=== PATIENT | male | born 1950 | race Caucasian/White ===

== ENCOUNTER 2020-08-05 18:03 | Observation (INO) ==
--- NOTE | 2020-08-05 18:26 | ERNOTE ---
<Maurilio Douglas - Last Filed: 08/05/20 19:36> Chest Pain/Cardiac HPI Date of Service: 08/05/20 Chief Complaint: Chest Pain Time Seen by Provider: 08/05/20 18:14 Source: patient, police Exam Limitations: no limitations Immunizations: IMMUNIZATION HX Immunizations Up to Date Yes History of Influenza Vaccine No Hx Pneumococcal Vaccination No Allergies/Adverse Reactions: Allergies No Known Allergies Allergy (Unverified 08/05/20 18:14) Home Medications: HOME MEDICATIONS Aspirin [Kd Chewable] 81 mg PO DAILY 08/05/20 [Last Taken Unknown] Atorvastatin Calcium 40 mg PO HS 08/05/20 [Last Taken Unknown] Cholecalciferol (Vitamin D3) [Vitamin D3] 400 unit PO BID 08/05/20 [Last Taken Unknown] Cyanocobalamin (Vitamin B-12) [Vitamin B-12] 200 mcg PO BID 08/05/20 [Last Taken Unknown] Escitalopram Oxalate 10 mg PO DAILY 08/05/20 [Last Taken Unknown] Hydrochlorothiazide [Hydrodiuril] 25 mg PO DAILY 08/05/20 [Last Taken Unknown] Mag Hydrox/Aluminum Hyd/Simeth [Mylanta Maximum Strength Liq] 15 ml PO DAILY 08/05/20 [Last Taken Unknown] Nitroglycerin [Nitro-Dur] 0.4 mg TD PRN 08/05/20 [Last Taken Unknown] Potassium Chloride 10 meq PO DAILY 08/05/20 [Last Taken Unknown] SUMAtriptan SUCCINATE [Sumatriptan Succinate] 50 mg PO DAILY 08/05/20 [Last Taken Unknown] Narrative: patient presents to ed with complaint of chest pain earlier today around 2pm took a nitro with relief has also had an adult asa,past hx of mi Timing: resolved prior to arrival, gone now Severity/Quality: pressure, sharp, stabbing Chest Pain Radiation: no radiation Activities at Onset: rest Modifying Factors - Improves: Present: nitroglycerin Modifying Factors - Worsens: Present: nothing Nitro Today/Relief: 0.4 mg x 1 Aspirin Treatment Today: 325 mg x 1 Associated Symptoms: Present: shortness of breath Prior Chest Pain/Cardiac Workup: Reports: prior chest pain, heart attack Review of Systems - Review of Systems Constitutional: Present: See HPI EYE: Present: no symptoms reported ENT: Present: no symptoms reported Respiratory: Present: no symptoms reported Cardiology: Present: See HPI, chest pain, palpitations Gastrointestinal/Abdominal: Present: no symptoms reported Genitourinary: Present: no symptoms reported Musculoskeletal: Present: no symptoms reported Skin: Present: no symptoms reported Neurological: Present: no symptoms reported Endocrine: Present: no symptoms reported Hematologic/Lymphatic: Present: no symptoms reported Psych: Present: no symptoms reported All Other Systems: All systems neg except as marked Medical History (Last Updated 08/05/20 @ 18:14 by Beth Morfin RN) Angina at rest Heart murmur Past heart attack Surgical History: Surgical History (Last Updated 08/05/20 @ 18:14 by Beth Morfin RN) No pertinent past surgical history Family History: Family History (Last Updated 08/05/20 @ 18:15 by Beth Morfin RN) Father Heart disease Diabetes Mother Heart disease Diabetes Social History: (Last Updated 08/05/20 @ 18:16 by Beth Morfin RN) Tobacco: Smoking Status: Current every day smoker Smoking cigarettes per day: 20 Alcohol: alcohol intake frequency: a few times a week Substance Use: substance use type: does not use Physical Exam - Physical Exam General Appearance: Present: no apparent distress, anxious Head Exam: Present: normal inspection, no evidence of injury Eye Exam: Normal inspection: bilateral, PERRL: bilateral, EOMI: bilateral Ears, Nose, Throat: Present: normal ENT inspection, normal pharynx Neck: Present: normal inspection, nontender Respiratory: Present: no respiratory distress, normal breath sounds, no accessory muscle use, chest nontender, lungs clear Cardiovascular/Chest: Present: irregularly irregular, systolic murmur Gastrointestinal/Abdominal: Present: normal bowel sounds, nontender, nondistended, soft, no organomegaly Back Exam: Present: normal inspection, normal range of motion, no CVA tenderness, no vertebral tenderness Extremity Exam: Present: normal inspection, non-tender, normal range of motion, no edema Neurological Exam: Present: alert, oriented, normal mood/affect, no mo tor/sensory deficits Skin Exam: Present: normal color, warm/dry Lymphatic Exam: Present: no adenopathy Progress - Date and Time Seen: Date and Time: 08/05/20 19:11 patient painfree at present discussed current labs, to repeat troponin at 9 pm - Results and Orders Patient's Lab Results:: I have reviewed the patient's lab results. - Vital Signs Patient's Vital Signs:: I have reviewed the patient's vital signs. Vital Signs: Vital Signs 08/05/20 18:09 Temperature 36.8 C Pulse Rate 82 Respiratory Rate 18 Blood Pressure 181/72 H O2 Sat by Pulse Oximetry 95 - EKG EKG #2 EKG: other - bigeminy EKG read: Interp. by me - Progress/Reassessment Chief Complaint: Chest Pain - Transfer of Care Physician Sign Out: Maurilio Douglas Receiving Physician: Juancarlos Martin Expected Disposition: Discharge Plan - Plan Plan: to be dismissed Departure Clinical Impression: Chest pain Qualifiers: Chest pain type: unspecified Qualified Code(s): R07.9 - Chest pain, unspecified - Departure Disposition: Short Term Hospital Inpatient Condition: Fair <Juancarlos Martin - Last Filed: 08/05/20 21:47> Chest Pain/Cardiac HPI Immunizations: IMMUNIZATION HX Immunizations Up to Date Yes History of Influenza Vaccine No Hx Pneumococcal Vaccination No Medical History (Last Updated 08/05/20 @ 18:14 by Beth Morfin RN) Angina at rest Heart murmur Past heart attack Surgical History: Surgical History (Last Updated 08/05/20 @ 18:14 by Beth Morfin RN) No pertinent past surgical history Family History: Family History (Last Updated 08/05/20 @ 18:15 by Beth Morfin, RN) Father Heart disease Diabetes Mother Heart disease Diabetes Social History: (Last Updated 08/05/20 @ 18:16 by Beth Morfin RN) Tobacco: Smoking Status: Current every day smoker Smoking cigarettes per day: 20 Alcohol: alcohol intake frequency: a few times a week Substance Use: substance use type: does not use Progress - Vital Signs Vital Signs: Vital Signs 08/05/20 18:09 08/05/20 18:33 08/05/20 18:35 Temperature 36.8 C Pulse Rate 82 76 83 Respiratory Rate 18 15 Blood Pressure 181/72 H 157/62 H O2 Sat by Pulse Oximetry 95 99 08/05/20 18:52 08/05/20 19:12 08/05/20 19:37 Temperature Pulse Rate 73 69 66 Respiratory Rate 18 16 12 Blood Pressure 145/61 155/82 H 143/72 O2 Sat by Pulse Oximetry 97 98 98 08/05/20 20:07 08/05/20 20:22 Temperature Pulse Rate 66 64 Respiratory Rate 15 15 Blood Pressure 142/72 130/67 O2 Sat by Pulse Oximetry 96 97 Plan - Plan Plan: Patient handed off to me by Dr. Douglas he has been without any complaints during the time that I have seen him I did repeat his troponin which returned was negative in addition his Covid was negative his EKG has normalized to a normal sinus rhythm. Case discussed with Dr. Hudson who accepted the patient under observation to monitor for cardiac dysrhythmias.
[2020-08-05 18:40] LABS: Hematocrit 50.6 % (42.0-52.0); Hemoglobin 16.7 gm/dL (13.5-18.0); Mean Cell Volume 95.7 fl (78-100); Mean Corpuscular Hemoglobin 31.6 pg (27-31); Mean Platelet Volume 8.8 fl (8-11.3); Neutrophil # 5.3 K/mm3 (1.3-6.0); Neutrophil % 53.3 % (42-75.0); Platelet Count 206 K/mm3 (150-450); Red Blood Count 5.29 M/mm3 (4.7-6.0); Red Cell Distribution Width 12.7 % (11.5-14.0)
[2020-08-05 18:47] LABS: Prothrombin Time (Patient) 10.4 Seconds (9.1-10.7)
[2020-08-05 18:52] LABS: INR 1.05 INR (0.92-1.08)
[2020-08-05 18:57] LABS: Troponin I Less than 0.017 ng/mL (0.00-0.10)
[2020-08-05 18:59] LABS: ALT 22 U/L (19-67); AST 21 U/L (0-48); Albumin * 4.1 gm/dl (3.4-5.0); Alkaline Phosphatase * 85 U/L (50-170); Anion Gap 13.2 mmol/L (6.8-13.8); BNP * 98 pg/mL (5-350); BUN/Creatinine Ratio 17.1 (9.0-21.6); Bilirubin, Total 0.9 mg/dL (0.0-1.1); Blood Urea Nitrogen 22 mg/dL (6-23); Ca. Corrected For Albumin 9.3 mg/dL (8.4-10.2); Calcium * 9.7 mg/dL (7.9-10.9); Carbon Dioxide 30.6 mmol/L (24-32.6); Chloride 101 mmol/L (97-106); Glucose * 151 mg/dL (70-110); Potassium 3.8 mmol/L (3.4-4.6); Sodium 141 mmol/L (132-142); Total Protein 7.4 gm/dL (6.2-8.2)
[2020-08-05 19:01] LABS: T4 Free * 0.83 ng/dL (0.76-1.46)
[2020-08-05 19:02] LABS: TSH * 4.859 uIU/mL (0.358-3.74)
[2020-08-05 19:02] LABS: Urine Bilirubin Negative (NEGATIVE); Urine Ketone 5 mg/dL (NEGATIVE); Urine Nitrite Negative (NEGATIVE); Urine Protein Negative (NEGATIVE); Urine Specific Gravity >=1.030 SP.GR. (1.005-1.030)
[2020-08-05] MEDS ORDERED: ASPIRIN 81 MG TAB.CHEW PO ONE ×2 (19:06→19:21)
[2020-08-05] MEDS ORDERED: ASPIRIN 81 MG TAB.CHEW ONE (19:06)
[2020-08-05 19:19] LABS: Urine Appearance Clear (CLEAR); Urine Bacteria TRACE; Urine Blood 5 /ul (NEGATIVE); Urine Color Dark Yellow; Urine Mucus Many - 3+; Urine RBC TRACE /hpf (0-5); Urine WBC TRACE /hpf (0-5)
[2020-08-05 19:25] LABS: Cocaine Ur Negative (NEGATIVE); Urine Barbiturate Negative (NEGATIVE); Urine Benzodiazepines Negative (NEGATIVE); Urine Opiates Negative (NEGATIVE); Urine PCP Negative (NEGATIVE); Urine THC Negative (NEGATIVE)
[2020-08-06 06:40] LABS: ALT 17 U/L (19-67); AST 19 U/L (0-48); Albumin * 3.6 gm/dl (3.4-5.0); Alkaline Phosphatase * 70 U/L (50-170); Anion Gap 11.1 mmol/L (6.8-13.8); BUN/Creatinine Ratio 17.9 (9.0-21.6); Bilirubin, Total 0.9 mg/dL (0.0-1.1); Blood Urea Nitrogen 19 mg/dL (6-23); Carbon Dioxide 29.2 mmol/L (24-32.6); Chloride 104 mmol/L (97-106); Glucose * 104 mg/dL (70-110); Potassium 3.3 mmol/L (3.4-4.6); Sodium 141 mmol/L (132-142); Total Protein 6.5 gm/dL (6.2-8.2)
[2020-08-06 06:42] LABS: Troponin I Less than 0.017 ng/mL (0.00-0.10)
--- NOTE | 2020-08-06 09:05 | HPDIS ---
Chief Complaint - Chief Complaint Date of Service: 08/06/20 Time of Service: 09:04 Chief Complaint: Chest Pain History of Present Illness: Francesco is a 69 yo male presenting to the [facility] ER for reports of chest pain. He has a history of OH and takes Nitro prn. He took one nitro which helped his chest pain. Reports indicate chest pain was resolved at the time he was seen in the ER and did not reoccur. Initial work up was negative for acute changes. A two hour repeat troponin was also negative in the ER. ER physician felt uncomfortable discharging him from the ER without further observation due to his cardiac history. He is currently asymptomatic. Medical History (Last Updated 08/05/20 @ 18:14 by Beth Morfin RN) Angina at rest Heart murmur Past heart attack Surgical History: Surgical History (Last Updated 08/05/20 @ 18:14 by Beth Morfin RN) No pertinent past surgical history Family History: Family History (Last Updated 08/05/20 @ 18:15 by Beth Morfin RN) Father Heart disease Diabetes Mother Heart disease Diabetes Social History: (Last Updated 08/05/20 @ 18:16 by Beth Morfin RN) Tobacco: Smoking Status: Current every day smoker Smoking cigarettes per day: 20 Alcohol: alcohol intake frequency: a few times a week Substance Use: substance use type: does not use Review Of Systems (GEN) - Review of Systems Generalized/Overall Review: Absent: Weakness, Chills, Fever EENTM: Present: No Symptoms Reported Respiratory: Absent: Cough, Shortness of Breath Cardiac: Absent: Chest Pain, Edema Abdominal: Absent: Nausea, Vomiting Genitourinary: Absent: Burning, Frequency Musculoskeletal: Present: No Symptoms Reported Neurological: Present: No Symptoms Reported Skin: Present: No Symptoms Reported Endocrine: Present: No Symptoms Reported Immunizations: IMMUNIZATION HX Immunizations Up to Date Yes History of Influenza Vaccine No Hx Pneumococcal Vaccination No Allergies/Adverse Reactions: Allergies Allergy/AdvReac Type Severity Reaction Status Date / Time No Known Allergies Allergy Unverified 08/05/20 18:14 Home Medications: HOME MEDICATIONS Aspirin [Kd Chewable Aspirin] 81 mg PO DAILY 08/05/20 [Last Taken Unknown] Atorvastatin Calcium 40 mg PO HS 08/05/20 [Last Taken Unknown] Cholecalciferol (Vitamin D3) [Vitamin D3] 400 unit PO BID 08/05/20 [Last Taken Unknown] Cyanocobalamin (Vitamin B-12) [Vitamin B-12] 200 mcg PO BID 08/05/20 [Last Taken Unknown] Escitalopram Oxalate 10 mg PO DAILY 08/05/20 [Last Taken Unknown] Hydrochlorothiazide [Hydrodiuril] 25 mg PO DAILY 08/05/20 [Last Taken Unknown] Mag Hydrox/Aluminum Hyd/Simeth [Mylanta Maximum Strength Liq] 15 ml PO DAILY 08/05/20 [Last Taken Unknown] Nitroglycerin [Nitro-Dur] 0.4 mg TD PRN 08/05/20 [Last Taken Unknown] Potassium Chloride 10 meq PO DAILY 08/05/20 [Last Taken Unknown] SUMAtriptan SUCCINATE [Sumatriptan Succinate] 50 mg PO DAILY 08/05/20 [Last Taken Unknown] Exam - Exam Vital Signs: Vital Signs - Last Taken Temp 37 C 08/06/20 06:12 Pulse 40 L 08/06/20 06:12 Resp 16 08/06/20 06:12 BP 124/62 08/06/20 06:12 Pulse Ox 96 08/06/20 02:21 Constitutional: Present: Alert, Oriented x3, Cooperative ENT Exam: Present: hearing grossly normal Eye Exam: bilateral eye: normal inspection Respiratory: Present: lungs clear, normal breath sounds, no respiratory distress Cardiovascular/Chest: Present: regular rate, rhythm, no edema, systolic murmur - 2+ Peripheral Pulses: radial (R): 2+, radial (L): 2+ Abdomen: Present: Normal bowel sounds, soft, nontender, nondistended Skin Exam: Present: normal color, warm/dry, no cyanosis Appearance: Present: appropriate appearance, appropriate insight Diagnostic Studies: Abnormal Lab Results 08/05/20 08/05/20 08/05/20 Range/Units 18:30 18:30 18:30 MCH 31.6 H (27-31) pg Monocytes % 9.1 H (0.0-9) % Eosinophils % 3.2 H (0.0-3.0) % Potassium (3.4-4.6) mmol/L Est GFR (Non-Af Amer) 59 L (60-130) mL/min Random Glucose 151 H (70-110) mg/dL ALT (19-67) U/L TSH 4.859 H (0.358-3.74) uIU/mL Urine Blood (NEGATIVE) /ul Urine Urobilinogen (NORMAL) EU/dl Hyaline Casts (NONE) /LPF Urine Mucus (NONE) 08/05/20 08/06/20 Range/Units 18:48 06:10 MCH (27-31) pg Monocytes % (0.0-9) % Eosinophils % (0.0-3.0) % Potassium 3.3 L (3.4-4.6) mmol/L Est GFR (Non-Af Amer) (60-130) mL/min Random Glucose (70-110) mg/dL ALT 17 L (19-67) U/L TSH (0.358-3.74) uIU/mL Urine Blood 5 H (NEGATIVE) /ul Urine Urobilinogen 2.0 H (NORMAL) EU/dl Hyaline Casts 10-25 H (NONE) /LPF Urine Mucus Many - 3+ H (NONE) Laboratory Results WBC 10.0 K/mm3 (4.0-10.5) 08/05/20 18:30 RBC 5.29 M/mm3 (4.7-6.0) 08/05/20 18:30 Hgb 16.7 gm/dL (13.5-18.0) 08/05/20 18:30 Hct 50.6 % (42.0-52.0) 08/05/20 18:30 MCV 95.7 fl (78-100) 08/05/20 18:30 MCH 31.6 pg (27-31) H 08/05/20 18:30 MCHC 33.0 g/dl (32-36) 08/05/20 18:30 RDW 12.7 % (11.5-14.0) 08/05/20 18:30 Plt Count 206 K/mm3 (150-450) 08/05/20 18:30 MPV 8.8 fl (8-11.3) 08/05/20 18:30 Immature Gran % (Auto) 0.30 % (0.001-0.429) 08/05/20 18:30 Immature Gran # (Auto) 0.03 K/mm3 (0.000-0.0310) 08/05/20 18:30 Neutrophils % 53.3 % (42-75.0) 08/05/20 18:30 Lymphocytes % 33.1 % (20-51) 08/05/20 18:30 Monocytes % 9.1 % (0.0-9) H 08/05/20 18:30 Eosinophils % 3.2 % (0.0-3.0) H 08/05/20 18:30 Basophils % 1.0 % (0.0-1.0) 08/05/20 18:30 Nucleated RBC % 0.0 k/mm3 (0-1) 08/05/20 18:30 Neutrophils # 5.3 K/mm3 (1.3-6.0) 08/05/20 18:30 Lymphocytes # 3.31 k/mm3 (1.5-3.5) 08/05/20 18:30 Monocytes # 0.9 k/mm3 (0.0-1.0) 08/05/20 18:30 Eosinophils # 0.3 k/mm3 (0.0-0.7) 08/05/20 18: Absolute Basophils 0.1 k/mm3 (0.0-0.1) 08/05/20 18:30 PT 10.4 Seconds (9.1-10.7) 08/05/20 18:30 INR (Anticoag Therapy) 1.05 INR (0.92-1.08) 08/05/20 18:30 PTT (Izaiah) 25.0 Seconds (24-32) 08/05/20 18:30 Sodium 141 mmol/L (132-142) 08/06/20 06:10 Plasma Sodium 141 mmol/L (130-142) 08/06/20 06:10 Potassium 3.3 mmol/L (3.4-4.6) L 08/06/20 06:10 Chloride 104 mmol/L (97-106) 08/06/20 06:10 Carbon Dioxide 29.2 mmol/L (24-32.6) 08/06/20 06:10 Anion Gap 11.1 mmol/L (6.8-13.8) 08/06/20 06:10 BUN 19 mg/dL (6-23) 08/06/20 06:10 Creatinine 1.06 mg/dL (0.4-1.4) 08/06/20 06:10 Est GFR (Non-Af Amer) 74 mL/min (60-130) D 08/06/20 06:10 BUN/Creatinine Ratio 17.9 (9.0-21.6) 08/06/20 06:10 Random Glucose 104 mg/dL (70-110) D 08/06/20 06:10 Calcium 9.0 mg/dL (7.9-10.9) 08/06/20 06:10 Calcium Adj for Albumin 9.0 mg/dL (8.4-10.2) 08/06/20 06:10 Total Bilirubin 0.9 mg/dL (0.0-1.1) 08/06/20 06:10 AST 19 U/L (0-48) 08/06/20 06:10 ALT 17 U/L (19-67) L 08/06/20 06:10 Alkaline Phosphatase 70 U/L (50-170) 08/06/20 06:10 Troponin I Less than 0.017 ng/mL (0.00-0.10) 08/06/20 06:10 B-Natriuretic Peptide 98 pg/mL (5-350) 08/05/20 18:30 Total Protein 6.5 gm/dL (6.2-8.2) 08/06/20 06:10 Albumin 3.6 gm/dl (3.4-5.0) 08/06/20 06:10 TSH 4.859 uIU/mL (0.358-3.74) H 08/05/20 18:30 Free T4 0.83 ng/dL (0.76-1.46) 08/05/20 18:30 Urine Color Dark yellow 08/05/20 18:48 Urine Appearance Clear (CLEAR) 08/05/20 18:48 Urine pH 6.0 pH (5.0-7.0) 08/05/20 18:48 Ur Specific Holmes >=1.030 SP.GR. (1.005-1.030) 08/05/20 18:48 Urine Protein Negative mg/dL (NEGATIVE) 08/05/20 18:48 Urine Glucose (UA) Negative mg/dL (NEGATIVE) 08/05/20 18:48 Urine Ketones 5 mg/dL (NEGATIVE) 08/05/20 18:48 Urine Blood 5 /ul (NEGATIVE) H 08/05/20 18:48 Urine Nitrate Negative (NEGATIVE) 08/05/20 18:48 Urine Bilirubin Negative mg/dl (NEGATIVE) 08/05/20 18:48 Urine Urobilinogen 2.0 EU/dl (NORMAL) H 08/05/20 18:48 Ur Leukocyte Esterase Negative /ul (NEGATIVE) 08/05/20 18:48 Urine RBC Trace /hpf (0-5) 08/05/20 18:48 Urine WBC Trace /hpf (0-5) 08/05/20 18:48 Ur Epithelial Cells Trace /hpf (0-5) 08/05/20 18:48 Urine Bacteria Trace (NONE) 08/05/20 18:48 Hyaline Casts 10-25 /LPF (NONE) H 08/05/20 18:48 Urine Mucus Many - 3+ (NONE) H 08/05/20 18:48 Urine Culture Comments No culture indicated 08/05/20 18:48 Urine Opiates Screen Negative (NEGATIVE) 08/05/20 18:48 Barbiturate Screen Negative (NEGATIVE) 08/05/20 18:48 Ur Phencyclidine Scrn Negative (NEGATIVE) 08/05/20 18:48 Urine Amphetamine Negative (NEGATIVE) 08/05/20 18:48 U Benzodiazepines Scrn Negative (NEGATIVE) 08/05/20 18:48 Urine Cocaine Screen Negative (NEGATIVE) 08/05/20 18:48 Urine Marijuana (THC) Negative (NEGATIVE) 08/05/20 18:48 SARS-CoV-2 (PCR) Not detected (NotDetected) 08/05/20 19:06 Assessment/Plan - Narrative Narrative: Francesco is a 69 yo male with Stable angina. He is chest pain free after taking his nitro. He will be admitted to observation overnight to monitor and repeat troponin in 6 hours. If no acute changes he will be discharged in the morning. - Assessment/Plan (1) Chest pain Problem: Resolved Qualifiers: Chest pain type: unspecified Qualified Code(s): R07.9 - Chest pain, unspecified (2) CAD (coronary artery disease) Problem: Chronic (1) Chest pain Problem: Resolved Qualifiers: Chest pain type: unspecified Qualified Code(s): R07.9 - Chest pain, unspecified (2) CAD (coronary artery disease) Problem: Chronic Date of Discharge:: 08/06/20 Hospital Course: Francesco was admitted to observation for stable angina, having chest pain that resolved with his nitro. There were no acute EKG changes and troponin has been negative. He was monitored on telemetry over night and another repeat troponin was negative. He has been medically cleared for discharge. There is no evidence of unstable angina. He will continue to use his nitro as prescribed. No changes were made at this time. Procedures Performed: none Results and Findings: Lab Pending Results 08/05/20 18:30: WBC 10.0, RBC 5.29, Hgb 16.7, Hct 50.6, MCV 95.7, MCH 31.6 H, MCHC 33.0, RDW 12.7, Plt Count 206, MPV 8.8, Immature Gran % (Auto) 0.30, Immature Gran # (Auto) 0.03, Neutrophils % 53.3, Lymphocytes % 33.1, Monocytes % 9.1 H, Eosinophils % 3.2 H, Basophils % 1.0, Nucleated RBC % 0.0, Neutrophils # 5.3, Lymphocytes # 3.31, Monocytes # 0.9, Eosinophils # 0.3, Absolute Basophils 0.1 08/05/20 18:30: PT 10.4, INR (Anticoag Therapy) 1.05, PTT ([place]) 25.0 08/05/20 18:30: Sodium 141, Plasma Sodium 142, Potassium 3.8, Chloride 101, Carbon Dioxide 30.6, Anion Gap 13.2, BUN 22, Creatinine 1.29, Est GFR (Non-Af Amer) 59 L, BUN/Creatinine Ratio 17.1, Random Glucose 151 H, Calcium 9.7, Calcium Adj for Albumin 9.3, Total Bilirubin 0.9, AST 21, ALT 22, Alkaline Phosphatase 85, Troponin I Less than 0.017, B-Natriuretic Peptide 98, Total Protein 7.4, Albumin 4.1 08/05/20 18:30: TSH 4.859 H, Free T4 0.83 08/05/20 18:48: Urine Color Dark yellow, Urine Appearance Clear, Urine pH 6.0, Ur Specific Holmes >=1.030, Urine Protein Negative, Urine Glucose (UA) Negative, Urine Ketones 5, Urine Blood 5 H, Urine Nitrate Negative, Urine Bilirubin Negative, Urine Urobilinogen 2.0 H, Ur Leukocyte Esterase Negative, Urine RBC Trace, Urine WBC Trace, Ur Epithelial Cells Trace, Urine Bacteria Trace, Hyaline Casts 10-25 H, Urine Mucus Many - 3+ H, Urine Culture Comments No culture indicated 08/05/20 18:48: Urine Opiates Screen Negative, Barbiturate Screen Negative, Ur Phencyclidine Scrn Negative, Urine Amphetamine Negative, U Benzodiazepines Scrn Negative, Urine Cocaine Screen Negative, Urine Marijuana (THC) Negative 08/05/20 19:06: SARS-CoV-2 (PCR) Not detected 08/05/20 21:03: Troponin I Less than 0.017 08/06/20 06:10: Sodium 141, Plasma Sodium 141, Potassium 3.3 L, Chloride 104, Carbon Dioxide 29.2, Anion Gap 11.1, BUN 19, Creatinine 1.06, Est GFR (Non-Af Amer) 74 D, BUN/Creatinine Ratio 17.9, Random Glucose 104 D, Calcium 9.0, Calcium Adj for Albumin 9.0, Total Bilirubin 0.9, AST 19, ALT 17 L, Alkaline Phosphatase 70, Troponin I Less than 0.017, Total Protein 6.5, Albumin 3.6 Discharge Location: [facility] Disposition: Home self-care Condition: Good Discharge Activity: Activity as tolerated Discharge Diet: General/regular food Problem Oriented Discharge Instructions to Patient/Family: Angina, [id number] Complete Home Medications List: Complete Home Medication List: Aspirin [Kd Chewable Aspirin] 81 mg PO DAILY 08/05/20 Atorvastatin Calcium 40 mg PO HS 08/05/20 Cholecalciferol (Vitamin D3) [Vitamin D3] 400 unit PO BID 08/05/20 Cyanocobalamin (Vitamin B-12) [Vitamin B-12] 200 mcg PO BID 08/05/20 Escitalopram Oxalate 10 mg PO DAILY 08/05/20 Hydrochlorothiazide [Hydrodiuril] 25 mg PO DAILY 08/05/20 Mag Hydrox/Aluminum Hyd/Simeth [Mylanta Maximum Strength Liq] 15 ml PO DAILY 08/05/20 Nitroglycerin [Nitro-Dur] 0.4 mg TD PRN 08/05/20 Potassium Chloride 10 meq PO DAILY 08/05/20 SUMAtriptan SUCCINATE [Sumatriptan Succinate] 50 mg PO DAILY 08/05/20 Forms: Patient Portal Registration
[2020-08-06 09:44] VITALS: BP 133/81
== END 2020-08-06 09:55 | disposition home or self-care (01) ==
LOC: EDBD → ER 18:03 → MS 18:03 → MERGE 21:54 → MS 22:10
PROVIDERS: ADMIT Family Medicine; ATTEND Family Medicine